=== PATIENT | female | born 1990 | race Caucasian/White ===

== ENCOUNTER 2023-12-28 21:11 | Emergency (ER) | payer OTHER, MEDICAID, SELFPAY ==
[2023-12-28 21:14] VITALS: BP 129/76; PULSE 96; RESP 16; TEMP 37.2; O2SAT 100; BMI 29.2
--- NOTE | 2023-12-28 21:39 | DI.US.S_ITS ---
PROCEDURE: US PELVIC COMPLETE INDICATIONS: PROBABLE INCOMPLETE ELECTIVE TECHNIQUE: Real-time scanning was performed of the pelvic organs, with image documentation. Additional endovaginal scanning was necessary due to incomplete visualization of the adnexal and endometrial structures by transabdominal scanning. COMPARISON: None. FINDINGS: Uterus: Uterus is anteverted and normal in size at 4.8 x 5.9 x 10.0 cm. The myometrium is homogeneous. The endometrium measures 21.2 mm combined thickness. Endometrial hyperplasia. Ovaries: The right ovary measures 2.8 x 2.4 x 1.7 cm, with a calculated ovarian volume of 6.1 cc. The left ovary measures 6.1 x 3.9 x 3.5 cm, with a calculated ovarian volume of 43.6 cc. This ovary is enlarged by presence of 2 simple appearing cysts that measure up to 3.3 cm in maximal dimension The ovaries have a normal sonographic appearance. Less than 12 follicles can be seen in each ovary. No adnexal masses are seen. Other: No pathologic free abdominal or pelvic fluid. IMPRESSION: No retained products of conception are seen. Endometrial hyperplasia is noted given the endometrial lining combined thickness of 21.2 mm. We strive to produce accurate, complete, and clear reports of imaging services. To assist us in improving patient care, this report was composed using standard report templates and voice recognition software. Therefore, it may contain abnormal punctuation, insertions and/or omissions. Occasional wrong-word or sound-alike substitutions may occur. Though we review the report and make efforts to correct it, we do recommend that the report be read carefully in proper context to recognize any text inaccuracies. Dictated by: Brant Khanna M.D. on 12/28/2023 at 23:00 Approved by: Brant Khanna M.D. on 12/28/2023 at 23:02
--- NOTE | 2023-12-28 21:56 | ED.RECABL ---
HPI - Recheck/Abnormal Lab/Rx General Chief Complaint: Recheck/Abnormal Lab/Rx Stated Complaint: post surgical issue Time Seen by Provider: 12/28/23 21:38 Source: patient Mode of arrival: Family Vehicle History of Present Illness HPI narrative: 33-year-old female. on December 02 started the process of an elective chemical . She started the process on December 02 and then took another set of medications 72 hours later. She was told that she was about 6 weeks along at that time. She states she had some bleeding and cramping afterwards but all those symptoms have resolved. She reports that 2 weeks ago she did have 2 episodes of unprotected sexual intercourse. She has not on control. She was told that today she needed to take a home test to see if she was negative and if the was successful. She states that her home tests today were positive. She denies fevers, no vaginal bleeding. No abdominal pain or cramping. Related Data Allergies Allergy/AdvReac Type Severity Reaction Status Date / Time No Known Drug Allergies Allergy Verified 12/28/23 21:34 Review of Systems Constitutional Constitutional: Reports system reviewed and no additional complaints, except as documented Gastrointestinal Gastrointestinal: Reports system reviewed and no additional complaints, except as documented Genitourinary Genitourinary: Reports system reviewed and no additional complaints, except as documented Integumentary/Breasts Skin/Breast: Reports system reviewed and no additional complaints, except as documented Hematologic/Lymphatic On Anticoagulants: No Exam Initial Vital Signs Initial Vital Signs: Vital Signs Temperature 98.9 F 12/28/23 21:14 Pulse Rate 96 H 12/28/23 21:14 Respiratory Rate 16 12/28/23 21:14 Blood Pressure 129/76 12/28/23 21:14 Pulse Oximetry 100 12/28/23 21:14 Oxygen Delivery Method Room Air 12/28/23 21:14 Const General: cooperative, comfortable and No ill appearing HENAK Head: normal to inspection and normocephalic Resp Effort & Inspection: normal respiratory effort Cardio Rate: regular rate GI Inspection: non-distended Skin General: no rashes or lesions noted Neuro General: patient alert, patient awake and moves all extremities Course Orders Ordered: ED Orders 12/28/23 21:39 US pelvic complete Stat 12/28/23 21:56 ABO RH Type Stat Basic Metabolic Panel Stat Complete Blood Count AUTO DIFF Stat HCG Quantitative /Beta subunit Stat Vital Signs Vital signs: Vital Signs - 8 hr 12/28/23 21:14 Temperature 98.9 F Pulse Rate 96 H Respiratory Rate 16 Blood Pressure 129/76 Pulse Oximetry 100 Oxygen Delivery Method Room Air MDM - Recheck/Abnormal Lab/Rx Lab Data Attestation: I reviewed the patient's lab results. 12/28/23 21:56 12/28/23 21:56 Labs: Lab Results 12/28/23 Range/Units 21:56 WBC 9.4 (4.5-11.0) X10^3/uL RBC 4.54 (4.0-5.2) X10^6/uL Hgb 13.4 (12.0-16.0) g/dL Hct 38.2 (36-46) % MCV 84.2 (80-100) fL MCH 29.4 (26-34) PG MCHC 35.0 (30-36) % RDW 13.0 (11.6-14.8) % Plt Count 263 (150-400) X10^3/uL Neut % (Auto) 69.4 (50-75) % Lymph % (Auto) 23.4 L (25-40) % [place] % (Auto) 5.6 (3-14) % Eos % (Auto) 0.6 L (2-4) % Baso % (Auto) 1.0 (0-2) % Neut # (Auto) 6500 (0299-2045) /uL Lymph # (Auto) 2200 (2814-4999) /uL [place] # (Auto) 500 (0-900) /uL Eos # (Auto) 100 (0-450) /uL Baso # (Auto) 100 (0-100) /uL Sodium 137 (137-145) mmol/L Potassium 3.5 (3.4-5.1) mmol/L Chloride 105 (98-107) mmol/L Carbon Dioxide 22 (22-32) mmol/L BUN 15 (7-17) mg/dL Creatinine 0.75 (0.52-1.04) mg/dL Estimated GFR > 60 (>60) mL/min BUN/Creatinine Ratio 20.0 (6-22) Glucose 91 (70-100) mg/dL Calcium 9.0 (8.4-10.2) mg/dL HCG, Quant 37.1 mIU/mL Blood Type O Positive Imaging Data US - OB: Radiologist's Impression: PROCEDURE: US PELVIC COMPLETE INDICATIONS: PROBABLE INCOMPLETE ELECTIVE TECHNIQUE: Real-time scanning was performed of the pelvic organs, with image documentation. Additional endovaginal scanning was necessary due to incomplete visualization of the adnexal and endometrial structures by transabdominal scanning. COMPARISON: None. FINDINGS: Uterus: Uterus is anteverted and normal in size at 4.8 x 5.9 x 10.0 cm. The myometrium is homogeneous. The endometrium measures 21.2 mm combined thickness. Endometrial hyperplasia. Ovaries: The right ovary measures 2.8 x 2.4 x 1.7 cm, with a calculated ovarian volume of 6.1 cc. The left ovary measures 6.1 x 3.9 x 3.5 cm, with a calculated ovarian volume of 43.6 cc. This ovary is enlarged by presence of 2 simple appearing cysts that measure up to 3.3 cm in maximal dimension The ovaries have a normal sonographic appearance. Less than 12 follicles can be seen in each ovary. No adnexal masses are seen. Other: No pathologic free abdominal or pelvic fluid. IMPRESSION: No retained products of conception are seen. Endometrial hyperplasia is noted given the endometrial lining combined thickness of 21.2 mm. MDM Narrative Medical decision making narrative: Patient is Rh positive. Vital signs unremarkable. She was not having any vaginal bleeding or abdominal discomfort. Her hCG quantitative level is only 37. Her ultrasound shows no retained products of conception nor intrauterine . She had intercourse 2 weeks ago and then again 7 days ago. Given the quantitative level of 37 I suspect that this is not a new however is the hormone level decreasing from the elective however just not yet reaching 0. I did discuss this with the patient. She understands that she needs a repeat quantitative level in 48 hours to continue to evaluate this. I advised that she contact the facility that performed the to discussed follow-up. She was given return precautions. Discharge Plan Departure Patient Disposition: Home Clinical Impression: test positive Activity Restrictions/Additional Instructions: The ultrasound today did not show any signs of retained products of conception nor did it show any signs of a new . Your hCG quantitative level was 37. You do need a repeat level drawn in 48 hours from now. I recommend that you contact the facility that started this process to discuss follow-up. Return to the emergency department for new symptoms. Referrals: Miscellaneous,Doctor, MD [Primary Care Provider] - Stand Alone Forms: Patient Portal/API
[2023-12-28 22:07] LABS: Add Manual Diff / Slide Review NO; Basophils Absolute Auto 100 /uL (0-100); Eosinophils Absolute Auto 100 /uL (0-450); Eosinophils Percent Auto 0.6 % (2-4); Hematocrit 38.2 % (36-46); Hemoglobin 13.4 g/dL (12.0-16.0); Lymphocytes Absolute Auto 2200 /uL (1100-4500); Lymphocytes Percent Auto 23.4 % (25-40); Mean Corpuscular Hemoglobin 29.4 PG (26-34); Mean Corpuscular Volume 84.2 fL (80-100); Monocytes Absolute Auto 500 /uL (0-900); Monocytes Percent Auto 5.6 % (3-14); Neutrophils Absolute Auto 6500 /uL (1500-7000); Neutrophils Percent Auto 69.4 % (50-75); Platelet Count 263 X10^3/uL (150-400); Red Blood Cell Count 4.54 X10^6/uL (4.0-5.2); White Blood Cell Count 9.4 X10^3/uL (4.5-11.0)
[2023-12-28 22:22] LABS: Blood Urea Nitrogen 15 mg/dL (7-17); Carbon Dioxide 22 mmol/L (22-32); Chloride 105 mmol/L (98-107); Estimated Glomerular Filt Rate > 60 mL/min (>60); Glucose 91 mg/dL (70-100); HEMOLYSIS < 15 (0-50); Potassium 3.5 mmol/L (3.4-5.1); Sodium 137 mmol/L (137-145)
[2023-12-28 22:39] LABS: HCG Quantitative /Beta subunit 37.1 mIU/mL
[2023-12-28 23:16] VITALS: BP 120/74; PULSE 86; RESP 16; O2SAT 97
== END 2023-12-28 23:21 | disposition home or self-care (01) ==
PROVIDERS: Emergency Provider Emergency Medicine
DX: O03.9 Complete or unspecified spontaneous abortion without complication (principal)
CPT/HCPCS: 36415; 76830; 76856; 80048; 84702; 85025; 86900; 86901; 99283; 99284

== ENCOUNTER 2024-09-01 18:12 | Emergency (ER) | payer SELFPAY ==
[2024-09-01 18:17] VITALS: BP 133/68; PULSE 90; RESP 16; TEMP 36.9; O2SAT 100
[2024-09-01 20:00] LABS: Urine N gonorrhoeae NOT DETECTED
[2024-09-01 20:03] LABS: Urine Chlamydia NOT DETECTED
--- NOTE | 2024-09-01 20:38 | ED.GENADULT ---
HPI - General Adult General Chief complaint: Urogenital-Female Stated complaint: wants STD test Time Seen by Provider: 09/01/24 20:36 Source: patient Mode of arrival: Ambulatory History of Present Illness HPI narrative: Patient was a 33-year-old female who was contacted by a prior sexual partner and was told that she should come and get tested for an STD. She last had sexual intercourse with this individual approximately 1 month ago. This individual recently was tested at another facility and was positive and contact with the patient and told her to come to get tested. The patient has no symptoms. Related Data Allergies Allergy/AdvReac Type Severity Reaction Status Date / Time No Known Drug Allergies Allergy Verified 12/28/23 21:34 Review of Systems Review of Systems Narrative: See HPI Patient History Social History Smoking Status: Never smoker Smoking Status: Never smoker alcohol intake frequency: holidays/special occasions only Substance Use Type: does not use Exam Initial Vital Signs Initial Vital Signs: Vital Signs Temperature 98.5 F 09/01/24 18:17 Pulse Rate 90 09/01/24 18:17 Respiratory Rate 16 09/01/24 18:17 Blood Pressure 133/68 09/01/24 18:17 Pulse Oximetry 100 09/01/24 18:17 Oxygen Delivery Method Room Air 09/01/24 18:17 Const General: cooperative and comfortable Resp Effort & Inspection: normal respiratory effort Cardio Rate: regular rate GI Inspection: normal to inspection Skin General: no rashes or lesions noted Neuro General: patient alert and patient awake Course Orders Ordered: ED Orders 09/01/24 18:20 Chlamydia Gonorrhea PCR -URINE Stat Vital Signs Vital signs: Vital Signs - 8 hr 09/01/24 18:17 Temperature 98.5 F Pulse Rate 90 Respiratory Rate 16 Blood Pressure 133/68 Pulse Oximetry 100 Oxygen Delivery Method Room Air Medical Decision Making Lab Data Lab results reviewed: Yes I reviewed the patient's lab results. Labs: Lab Results 09/01/24 Range/Units 18:20 Ur Chlamydia DNA (PCR) Not detected N gonorrhoeae DNA (PCR) Not detected Point of Care Testing Test Results Negative Point of care testing: Point of Care Testing Test Results Negative MDM Narrative Medical decision making narrative: test is negative. GC and chlamydia is negative. Patient was informed of these results. Discharge Plan Departure Patient Disposition: Home Clinical Impression: Screening for STD (sexually transmitted disease) Activity Restrictions/Additional Instructions: Your test was negative. Gonorrhea and chlamydia test negative as well. Return to the emergency department as needed. Referrals: Miscellaneous,Doctor, MD [Primary Care Provider] - Stand Alone Forms: Patient Portal/API
== END 2024-09-01 20:40 | disposition home or self-care (01) ==
PROVIDERS: Emergency Provider Emergency Medicine
DX: Z20.2 Contact with and (suspected) exposure to infections with a predominantly sexual mode of transmission (principal); Z11.3 Encounter for screening for infections with a predominantly sexual mode of transmission
CPT/HCPCS: 81025; 87491; 87591; 99282